=== PATIENT | male | born 1935 | race Caucasian/White ===

== ENCOUNTER 2020-10-03 10:39 | Inpatient (IN) ==
[2020-10-03 12:09] LABS: ABS Basophils 0.1 10^3/ul (0-0.2); ABS Lymphocytes 0.7 10^3/ul (1.0-4.8); ABS Monocytes 0.6 10^3/ul (0-0.8); ABS Neutrophils 12.9 10^3/ul (1.5-7.7); Hematocrit 40 % (42-52); Lymphocyte % 5.2 %; Mean Corpuscular HGB Conc 33 g/dL (31-36); Mean Corpuscular Hemoglobin 31 pg (27-31); Mean Corpuscular Volume 95 fL (80-94); Mean Platelet Volume 8.1 fL (7.4-10.4); Platelet Count 199 10^3/uL (150-450); Red Blood Count 4.15 10^6 /uL (4.18-5.48); Red Cell Distribution Width 14 % (10-15); White Blood Count 14.3 10^3/uL (3.5-10.8)
[2020-10-03 12:26] LABS: ALT 20 U/L (7-52); Albumin 4.3 g/dL (3.2-5.2); Albumin/Globulin Ratio 1.5 (1-3); Alkaline Phosphatase 49 U/L (34-104); BUN/Creatinine Ratio 24.7 (8-20); Blood Urea Nitrogen 23 mg/dL (6-24); C Reactive Protein < 1.00 mg/L (<8.01); CO2 Carbon Dioxide 27 mmol/L (22-32); Calcium 9.7 mg/dL (8.6-10.3); Chloride 94 mmol/L (101-111); EGFR Non-African American 76.9 (>60); Globulin 2.9 g/dL (2-4); Glucose 134 mg/dL (70-100); Sodium 129 mmol/L (135-145); Total Protein 7.2 g/dL (6.4-8.9)
[2020-10-03 13:03] LABS: Anion Gap 8 mmol/L (2-11)
[2020-10-03] MEDS ORDERED: Ondansetron 4 mg VIAL 2 MG/ML 2 ml VIAL IV ONE (13:03)
[2020-10-03] MEDS ORDERED: LORazepam 2 mg VIAL 1 ml IV PUSH ONE (13:40)
[2020-10-03] MEDS ORDERED: Lorazepam PYXIS KEY PRN ×2 (13:40→14:14)
[2020-10-03] MEDS ORDERED: NS 0.9% 1000 ml BAG 1,000 ML IV SCH (13:45)
[2020-10-03] MEDS ORDERED: Lactated Ringers 1000 ml BAG 1,000 ML IV SCH (15:00)
[2020-10-03 18:37] LABS: Urine Appearance Turbid; Urine Bilirubin Negative (Negative); Urine Blood 3+ (Negative); Urine Color Amber; Urine Glucose Negative (Negative); Urine Ketones Trace (Negative); Urine Nitrite Positive (Negative); Urine Protein 2+(100 mg/dL) (Negative); Urine Specific Gravity 1.014 (1.010-1.030); Urine Urobilinogen Negative (Negative)
[2020-10-03] MEDS ORDERED: Piperacillin/Tazobac ADVAN 3.375 GM in NS 0.9% 100 ml BAG 100 ML IV ONE (18:42)
[2020-10-03 18:44] LABS: Urine Bacteria 3+ (Absent); Urine Red Blood Cell 3+(>10/hpf) (Absent); Urine White Blood Cell 3+(>20/hpf) (Absent)
[2020-10-03] MEDS ORDERED: Zosyn per Pharmacy NOTE FOLLOW UP SCH (19:00)
[2020-10-03] MEDS: NS 0.9% 1000 ml BAG 1,000 ML IV SCH (22:19)
[2020-10-03] MEDS: Heparin 5000 UNITS/ML 1 mL VIAL SUBCUT SCH (22:23)
[2020-10-04] MEDS: ZOSYN 3.375 GM Q8H per EXTENDED INFUSION IV SCH ×3 (02:18→18:14)
[2020-10-04] MEDS: Heparin 5000 UNITS/ML 1 mL VIAL SUBCUT SCH ×3 (04:23→21:09)
[2020-10-04 05:58] LABS: ABS Lymphocytes 1.3 10^3/ul (1.0-4.8); ABS Monocytes 1.5 10^3/ul (0-0.8); ABS Neutrophils 15.2 10^3/ul (1.5-7.7); Hematocrit 26 % (42-52); Hemoglobin 8.5 g/dL (14.0-18.0); Lymphocyte % 7.5 %; Mean Corpuscular HGB Conc 34 g/dL (31-36); Mean Corpuscular Hemoglobin 32 pg (27-31); Mean Corpuscular Volume 95 fL (80-94); Mean Platelet Volume 7.7 fL (7.4-10.4); Platelet Count 150 10^3/uL (150-450); Red Blood Count 2.69 10^6 /uL (4.18-5.48); Red Cell Distribution Width 14 % (10-15)
[2020-10-04 05:59] LABS: BUN/Creatinine Ratio 25.4 (8-20); Calcium 8.3 mg/dL (8.6-10.3); EGFR Non-African American 50.4 (>60); Potassium 4.7 mmol/L (3.5-5.0)
[2020-10-04] MEDS ORDERED: Buffered Lidocaine 1% SYRIN 1 ml INTRADERM ONE (06:00)
[2020-10-04] MEDS ORDERED: Famotidine IV 10 MG/ML 2 ml VIAL (20 mg) IV ONE (06:00)
[2020-10-04] MEDS: Cholecalciferol (VIT D3) 1,000 unit TAB PO SCH ×2 (08:20→11:09)
[2020-10-04] MEDS: NS 0.9% 1000 ml BAG 1,000 ML IV SCH ×2 (09:24→18:15)
[2020-10-04] MEDS: LORazepam 2 mg VIAL 1 ml IV PUSH PRN (21:56)
[2020-10-05] MEDS: NS 0.9% 1000 ml BAG 1,000 ML IV SCH (01:23)
[2020-10-05] MEDS: ZOSYN 3.375 GM Q8H per EXTENDED INFUSION IV SCH ×3 (02:26→19:03)
[2020-10-05] MEDS: Heparin 5000 UNITS/ML 1 mL VIAL SUBCUT SCH (06:10)
[2020-10-05 06:24] LABS: Hematocrit 18 % (42-52); Mean Corpuscular HGB Conc 35 g/dL (31-36); Mean Corpuscular Hemoglobin 33 pg (27-31); Mean Corpuscular Volume 95 fL (80-94); Red Blood Count 1.86 10^6 /uL (4.18-5.48); Red Cell Distribution Width 14 % (10-15); White Blood Count 11.4 10^3/uL (3.5-10.8)
[2020-10-05 06:31] LABS: BUN/Creatinine Ratio 26.7 (8-20); Calcium 7.8 mg/dL (8.6-10.3); EGFR African American 84.5 (>60); EGFR Non-African American 69.9 (>60); Potassium 4.1 mmol/L (3.5-5.0)
[2020-10-05 06:40] LABS: ABS Lymphocytes 1.6 10^3/ul (1.0-4.8); ABS Monocytes 1.3 10^3/ul (0-0.8); ABS Neutrophils 8.4 10^3/ul (1.5-7.7); Eosinophil % 0.1 %; INR 1.12 (0.82-1.09); Lymphocyte % 14.3 %; Mean Platelet Volume 7.4 fL (7.4-10.4); Platelet Count 96 10^3/uL (150-450)
[2020-10-05 06:44] LABS: Hemoglobin 6.1 g/dL (14.0-18.0)
[2020-10-05] MEDS: Cholecalciferol (VIT D3) 1,000 unit TAB PO SCH (08:57)
[2020-10-05] MEDS ORDERED: [UNRECOGNIZED DRUG - OTHER] IV ONE (12:30)
[2020-10-05] MEDS ORDERED: ANTIHEMOPHILIC FACTOR IV ONE (12:30)
[2020-10-05] MEDS ORDERED: Lidocaine 1% w EPI 1:200,000 SDV 30 ML VIAL ONE (13:21)
[2020-10-05] MEDS ORDERED: Bacitracin INJECTION 50,000 UNITS ONE (13:22)
[2020-10-05] MEDS ORDERED: Lidocaine 2% PF 5 ML VIAL ONE (13:56)
[2020-10-05] MEDS ORDERED: Propofol 1,000 MG/100 ML BTL ONE (13:56)
[2020-10-05] MEDS ORDERED: Rocuronium 50 mg VIAL 10 mg/ml 5 ml VIAL (50 mg) ONE (13:59)
[2020-10-05] MEDS ORDERED: Sodium Chloride 0.9% 10 ML ONE (15:01)
[2020-10-05] MEDS ORDERED: Desflurane 240 ML INH ONE (16:57)
[2020-10-05] MEDS ORDERED: Dexamethasone IV 4 MG/ML VIAL 1 ml VIAL ONE (17:05)
[2020-10-05 17:07] LABS: ABS Lymphocytes 1.9 10^3/ul (1.0-4.8); ABS Monocytes 1.6 10^3/ul (0-0.8); ABS Neutrophils 12.3 10^3/ul (1.5-7.7); Eosinophil % 0.1 %; Hematocrit 24 % (42-52); Lymphocyte % 12.2 %; Mean Corpuscular HGB Conc 34 g/dL (31-36); Mean Corpuscular Hemoglobin 31 pg (27-31); Mean Corpuscular Volume 91 fL (80-94); Mean Platelet Volume 7.7 fL (7.4-10.4); Platelet Count 86 10^3/uL (150-450); Red Blood Count 2.61 10^6 /uL (4.18-5.48); Red Cell Distribution Width 15 % (10-15); White Blood Count 15.9 10^3/uL (3.5-10.8)
[2020-10-05] MEDS ORDERED: HYDROmorphone 1 MG/1 ML SYRINGE IV PRN (17:13)
[2020-10-05] MEDS ORDERED: Naloxone 0.4 mg VIAL 0.4 mg/ml 1 ml VIAL IV PRN (17:13)
[2020-10-05] MEDS ORDERED: Ondansetron 4 mg VIAL 2 MG/ML 2 ml VIAL IV PRN (17:13)
[2020-10-05 18:19] LABS: Hematocrit 24 % (42-52); Hemoglobin 8.1 g/dL (14.0-18.0)
[2020-10-06 00:34] LABS: ABS Lymphocytes 0.4 10^3/ul (1.0-4.8); ABS Monocytes 0.7 10^3/ul (0-0.8); ABS Neutrophils 9.8 10^3/ul (1.5-7.7); Hematocrit 22 % (42-52); Hemoglobin 7.7 g/dL (14.0-18.0); Lymphocyte % 3.7 %; Mean Corpuscular HGB Conc 35 g/dL (31-36); Mean Corpuscular Hemoglobin 32 pg (27-31); Mean Corpuscular Volume 91 fL (80-94); Mean Platelet Volume 7.7 fL (7.4-10.4); Platelet Count 91 10^3/uL (150-450); Red Blood Count 2.45 10^6 /uL (4.18-5.48); Red Cell Distribution Width 15 % (10-15); White Blood Count 10.9 10^3/uL (3.5-10.8)
[2020-10-06] MEDS ORDERED: ANTIHEMOPHILIC FACTOR IV ONE ×2 (01:00→13:00)
[2020-10-06] MEDS ORDERED: [UNRECOGNIZED DRUG - OTHER] IV ONE ×2 (01:00→13:00)
[2020-10-06] MEDS: LORazepam 2 mg VIAL 1 ml IV PUSH PRN ×2 (01:55→14:18)
[2020-10-06] MEDS: ZOSYN 3.375 GM Q8H per EXTENDED INFUSION IV SCH ×3 (02:41→18:41)
[2020-10-06 06:39] LABS: Urine Appearance Cloudy; Urine Bilirubin Negative (Negative); Urine Blood 2+ (Negative); Urine Color Yellow; Urine Glucose Negative (Negative); Urine Ketones Negative (Negative); Urine Nitrite Negative (Negative); Urine Protein Negative (Negative); Urine Urobilinogen Negative (Negative)
[2020-10-06 06:44] LABS: Urine Bacteria 1+ (Absent); Urine Red Blood Cell 2+(6-10/hpf) (Absent); Urine Squamous Epithelial Cell Present (Absent); Urine Uric Acid Crystals Present (Absent); Urine White Blood Cell 2+(11-20/hpf) (Absent)
[2020-10-06 09:04] LABS: Hematocrit 26 % (42-52); Hemoglobin 8.9 g/dL (14.0-18.0)
[2020-10-06] MEDS ORDERED: ANTIHEMOPHILIC FACTOR IV SCH (10:00)
[2020-10-06] MEDS ORDERED: [UNRECOGNIZED DRUG - OTHER] IV SCH (10:00)
[2020-10-06] MEDS: Cholecalciferol (VIT D3) 1,000 unit TAB PO SCH (10:12)
[2020-10-06 12:28] LABS: Hematocrit 24 % (42-52); Hemoglobin 8.2 g/dL (14.0-18.0)
[2020-10-06] MEDS: NS 0.9% 1000 ml BAG 1,000 ML IV SCH (13:01)
[2020-10-06 14:48] LABS: Calcium 8.1 mg/dL (8.6-10.3); Magnesium 1.8 mg/dL (1.9-2.7); Potassium 3.8 mmol/L (3.5-5.0)
[2020-10-06 14:54] LABS: BUN/Creatinine Ratio 25.3 (8-20); EGFR African American 112.3 (>60); EGFR Non-African American 92.8 (>60)
[2020-10-06] MEDS ORDERED: Magnesium Sulfate 2 gm BAG 2 GM/50 ML BAG IVPB ONE (16:12)
[2020-10-06] MEDS: Polyethylene Glycol 3350 17 GM PACKET PO SCH (16:38)
[2020-10-06 20:41] LABS: Hematocrit 24 % (42-52)
[2020-10-06 23:24] LABS: Hematocrit 21 % (42-52); Hemoglobin 7.3 g/dL (14.0-18.0)
[2020-10-07] MEDS ORDERED: [UNRECOGNIZED DRUG - OTHER] IV ONE ×2 (01:00→13:00)
[2020-10-07] MEDS ORDERED: [UNRECOGNIZED DRUG - OTHER] IV ONE (01:00)
[2020-10-07] MEDS ORDERED: ANTIHEMOPHILIC FACTOR IV ONE ×3 (01:00→13:00)
[2020-10-07] MEDS: ZOSYN 3.375 GM Q8H per EXTENDED INFUSION IV SCH (04:21)
[2020-10-07 05:48] LABS: Hematocrit 25 % (42-52); Hemoglobin 8.8 g/dL (14.0-18.0)
[2020-10-07 06:12] LABS: Calcium 7.9 mg/dL (8.6-10.3); EGFR African American 124.9 (>60); EGFR Non-African American 103.3 (>60); Potassium 3.6 mmol/L (3.5-5.0)
[2020-10-07] MEDS ORDERED: Potassium Chlor 20 meq TAB.ER PO ONE (06:52)
[2020-10-07 08:37] LABS: Magnesium 1.9 mg/dL (1.9-2.7)
[2020-10-07] MEDS ORDERED: Magnesium Sulfate 2 gm BAG 2 GM/50 ML BAG IVPB ONE (08:38)
[2020-10-07 09:05] LABS: Hematocrit 27 % (42-52); Hemoglobin 9.1 g/dL (14.0-18.0)
[2020-10-07] MEDS: Polyethylene Glycol 3350 17 GM PACKET PO SCH (09:28)
[2020-10-07] MEDS: Cholecalciferol (VIT D3) 1,000 unit TAB PO SCH (09:28)
[2020-10-07] MEDS ORDERED: Piperacillin/Tazobac ADVAN 3.375 GM in NS 0.9% 100 ml BAG 100 ML IV SCH (12:30)
[2020-10-07] MEDS: NS 0.9% 1000 ml BAG 1,000 ML IV SCH (12:45)
[2020-10-07 14:29] LABS: Hematocrit 26 % (42-52); Hemoglobin 9.1 g/dL (14.0-18.0)
[2020-10-07 20:51] LABS: Hematocrit 25 % (42-52); Hemoglobin 8.8 g/dL (14.0-18.0)
[2020-10-08] MEDS ORDERED: [UNRECOGNIZED DRUG - OTHER] IV ONE ×2 (01:00→13:00)
[2020-10-08] MEDS ORDERED: [UNRECOGNIZED DRUG - OTHER] IV ONE ×2 (01:00→13:00)
[2020-10-08] MEDS ORDERED: ANTIHEMOPHILIC FACTOR IV ONE ×4 (01:00→13:00)
[2020-10-08 01:59] LABS: Hematocrit 23 % (42-52); Hemoglobin 8.2 g/dL (14.0-18.0)
[2020-10-08 07:03] LABS: Hematocrit 25 % (42-52); Hemoglobin 8.5 g/dL (14.0-18.0)
[2020-10-08 07:32] LABS: BUN/Creatinine Ratio 24.2 (8-20); EGFR African American 148.5 (>60); EGFR Non-African American 122.7 (>60); Magnesium 1.9 mg/dL (1.9-2.7); Potassium 3.6 mmol/L (3.5-5.0)
[2020-10-08] MEDS: Cholecalciferol (VIT D3) 1,000 unit TAB PO SCH (08:54)
[2020-10-08] MEDS: Polyethylene Glycol 3350 17 GM PACKET PO SCH (08:55)
[2020-10-08] MEDS: NS 0.9% 1000 ml BAG 1,000 ML IV SCH (12:39)
[2020-10-09] MEDS ORDERED: [UNRECOGNIZED DRUG - OTHER] IV ONE ×2 (01:00→13:00)
[2020-10-09] MEDS ORDERED: [UNRECOGNIZED DRUG - OTHER] IV ONE ×2 (01:00→13:00)
[2020-10-09] MEDS ORDERED: ANTIHEMOPHILIC FACTOR IV ONE ×4 (01:00→13:00)
[2020-10-09 06:32] LABS: Hematocrit 24 % (42-52); Hemoglobin 8.5 g/dL (14.0-18.0)
[2020-10-09] MEDS: Polyethylene Glycol 3350 17 GM PACKET PO SCH (09:14)
[2020-10-09] MEDS: Cholecalciferol (VIT D3) 1,000 unit TAB PO SCH (09:14)
[2020-10-10 03:11] VITALS: BP 150/65
[2020-10-10 05:48] LABS: Hematocrit 28 % (42-52); Hemoglobin 9.5 g/dL (14.0-18.0)
== END 2020-10-10 07:45 | DRG 480 ==
LOC: ED 10:39 → SSU 14:11
PROVIDERS: ADMIT Internal Medicine; ATTEND Internal Medicine

== ENCOUNTER 2020-10-08 08:19 | Inpatient (IN) ==
[2020-10-10] MEDS ORDERED: Senna TAB 8.6 mg TAB PO PRN (08:41)
[2020-10-10] MEDS ORDERED: Al Hydrox/Mg Hydrox/Simet LIQ 30 ML UDC PO PRN (08:41)
[2020-10-10] MEDS ORDERED: Magnesium Hydroxide LIQ 30 ML UDC PO PRN (08:41)
[2020-10-10] MEDS ORDERED: Polyethylene Glycol 3350 17 GM PACKET PO SCH (09:00)
[2020-10-10] MEDS: Cholecalciferol (VIT D3) 1,000 unit TAB PO SCH (10:40)
[2020-10-10] MEDS ORDERED: ANTIHEMOPHILIC FACTOR IV ONE (13:00)
[2020-10-10] MEDS ORDERED: [UNRECOGNIZED DRUG - OTHER] IV ONE (13:00)
[2020-10-11 06:30] LABS: ABS Eosinophils 0.2 10^3/ul (0-0.6); ABS Lymphocytes 1.4 10^3/ul (1.0-4.8); ABS Neutrophils 5.6 10^3/ul (1.5-7.7); Eosinophil % 2.9 %; Hematocrit 27 % (42-52); Hemoglobin 9.2 g/dL (14.0-18.0); Lymphocyte % 16.4 %; Mean Corpuscular HGB Conc 35 g/dL (31-36); Mean Corpuscular Hemoglobin 32 pg (27-31); Mean Corpuscular Volume 93 fL (80-94); Mean Platelet Volume 6.8 fL (7.4-10.4); Platelet Count 239 10^3/uL (150-450); Red Blood Count 2.86 10^6 /uL (4.18-5.48); Red Cell Distribution Width 15 % (10-15); White Blood Count 8.3 10^3/uL (3.5-10.8)
[2020-10-11 06:50] LABS: Albumin 2.7 g/dL (3.2-5.2); Albumin/Globulin Ratio 1.2 (1-3); BUN/Creatinine Ratio 22.4 (8-20); Calcium 8.1 mg/dL (8.6-10.3); EGFR African American 135.8 (>60); EGFR Non-African American 112.2 (>60); Globulin 2.2 g/dL (2-4); Potassium 3.7 mmol/L (3.5-5.0); Total Bilirubin 1.4 mg/dL (0.2-1.0); Total Protein 4.9 g/dL (6.4-8.9)
[2020-10-11] MEDS: Cholecalciferol (VIT D3) 1,000 unit TAB PO SCH (08:29)
[2020-10-11] MEDS ORDERED: ANTIHEMOPHILIC FACTOR IV ONE (14:00)
[2020-10-11] MEDS ORDERED: [UNRECOGNIZED DRUG - OTHER] IV ONE (14:00)
[2020-10-12 06:45] LABS: Hematocrit 28 % (42-52); Hemoglobin 9.4 g/dL (14.0-18.0)
[2020-10-12] MEDS ORDERED: NS 0.9% 250 ml 250 ML IV ONE (09:08)
[2020-10-12] MEDS: Cholecalciferol (VIT D3) 1,000 unit TAB PO SCH (09:24)
[2020-10-12] MEDS ORDERED: ANTIHEMOPHILIC FACTOR IV ONE (14:30)
[2020-10-12] MEDS ORDERED: [UNRECOGNIZED DRUG - OTHER] IV ONE (14:30)
[2020-10-13 06:54] LABS: ABS Basophils 0.1 10^3/ul (0-0.2); ABS Eosinophils 0.2 10^3/ul (0-0.6); ABS Lymphocytes 1.3 10^3/ul (1.0-4.8); ABS Monocytes 0.9 10^3/ul (0-0.8); ABS Neutrophils 6.1 10^3/ul (1.5-7.7); Eosinophil % 2.7 %; Hematocrit 28 % (42-52); Hemoglobin 9.6 g/dL (14.0-18.0); Lymphocyte % 15.1 %; Mean Corpuscular HGB Conc 34 g/dL (31-36); Mean Corpuscular Hemoglobin 32 pg (27-31); Mean Corpuscular Volume 94 fL (80-94); Mean Platelet Volume 6.6 fL (7.4-10.4); Platelet Count 287 10^3/uL (150-450); Red Blood Count 3.01 10^6 /uL (4.18-5.48); Red Cell Distribution Width 16 % (10-15); White Blood Count 8.6 10^3/uL (3.5-10.8)
[2020-10-13 07:17] LABS: Albumin 2.8 g/dL (3.2-5.2); Albumin/Globulin Ratio 1.2 (1-3); BUN/Creatinine Ratio 22.6 (8-20); Calcium 8.3 mg/dL (8.6-10.3); EGFR African American 148.5 (>60); EGFR Non-African American 122.7 (>60); Globulin 2.4 g/dL (2-4); Total Bilirubin 1.3 mg/dL (0.2-1.0); Total Protein 5.2 g/dL (6.4-8.9)
[2020-10-13] MEDS: Cholecalciferol (VIT D3) 1,000 unit TAB PO SCH (08:29)
[2020-10-13] MEDS ORDERED: [UNRECOGNIZED DRUG - OTHER] IV ONE (13:00)
[2020-10-13] MEDS ORDERED: [UNRECOGNIZED DRUG - OTHER] IV ONE (13:00)
[2020-10-13] MEDS ORDERED: ANTIHEMOPHILIC FACTOR IV ONE ×2 (13:00)
[2020-10-14 06:50] LABS: Hematocrit 29 % (42-52); Hemoglobin 9.6 g/dL (14.0-18.0)
[2020-10-14] MEDS: Cholecalciferol (VIT D3) 1,000 unit TAB PO SCH (10:48)
[2020-10-14] MEDS ORDERED: [UNRECOGNIZED DRUG - OTHER] IV ONE ×2 (14:00)
[2020-10-14] MEDS ORDERED: ANTIHEMOPHILIC FACTOR IV ONE ×3 (14:00)
[2020-10-14] MEDS ORDERED: [UNRECOGNIZED DRUG - OTHER] IV ONE (14:00)
[2020-10-14] MEDS ORDERED: Hemorrhoidal OINT 1 TUBE PR PRN (20:13)
[2020-10-15 06:19] LABS: Hematocrit 29 % (42-52); Hemoglobin 9.8 g/dL (14.0-18.0)
[2020-10-15] MEDS: Cholecalciferol (VIT D3) 1,000 unit TAB PO SCH (09:44)
[2020-10-15 20:06] LABS: Urine Appearance Cloudy; Urine Bilirubin Negative (Negative); Urine Blood 2+ (Negative); Urine Color Amber; Urine Glucose Negative (Negative); Urine Ketones Negative (Negative); Urine Nitrite Positive (Negative); Urine Protein Negative (Negative); Urine Specific Gravity 1.019 (1.010-1.030); Urine Urobilinogen Negative (Negative)
[2020-10-15 20:08] LABS: Urine Bacteria 1+ (Absent); Urine Red Blood Cell 3+(>10/hpf) (Absent); Urine Squamous Epithelial Cell Present (Absent); Urine White Blood Cell 3+(>20/hpf) (Absent)
[2020-10-16 06:17] LABS: Hematocrit 30 % (42-52)
[2020-10-16] MEDS: Cholecalciferol (VIT D3) 1,000 unit TAB PO SCH (09:08)
[2020-10-17 06:23] LABS: Hematocrit 29 % (42-52); Hemoglobin 9.9 g/dL (14.0-18.0)
[2020-10-17] MEDS: Cholecalciferol (VIT D3) 1,000 unit TAB PO SCH (10:15)
[2020-10-18] MEDS: Cholecalciferol (VIT D3) 1,000 unit TAB PO SCH (09:20)
[2020-10-19] MEDS: Cholecalciferol (VIT D3) 1,000 unit TAB PO SCH (08:54)
[2020-10-20 05:22] LABS: ABS Basophils 0.1 10^3/ul (0-0.2); ABS Eosinophils 0.1 10^3/ul (0-0.6); ABS Lymphocytes 1.4 10^3/ul (1.0-4.8); ABS Monocytes 0.7 10^3/ul (0-0.8); ABS Neutrophils 4.9 10^3/ul (1.5-7.7); Hematocrit 31 % (42-52); Hemoglobin 10.3 g/dL (14.0-18.0); Lymphocyte % 19.1 %; Mean Corpuscular HGB Conc 34 g/dL (31-36); Mean Corpuscular Hemoglobin 32 pg (27-31); Mean Corpuscular Volume 96 fL (80-94); Mean Platelet Volume 6.1 fL (7.4-10.4); Platelet Count 340 10^3/uL (150-450); Red Blood Count 3.18 10^6 /uL (4.18-5.48); Red Cell Distribution Width 17 % (10-15); White Blood Count 7.2 10^3/uL (3.5-10.8)
[2020-10-20 05:50] LABS: Albumin 2.9 g/dL (3.2-5.2); BUN/Creatinine Ratio 22.9 (8-20); Calcium 8.6 mg/dL (8.6-10.3); EGFR African American 129.1 (>60); EGFR Non-African American 106.7 (>60); Globulin 2.9 g/dL (2-4); Potassium 4.3 mmol/L (3.5-5.0); Total Protein 5.8 g/dL (6.4-8.9)
[2020-10-20] MEDS: Cholecalciferol (VIT D3) 1,000 unit TAB PO SCH (08:47)
[2020-10-20] MEDS: Cefepime 1 GM in Dextrose 1 GM/50 ML BAG IV SCH (19:01)
[2020-10-21] MEDS: Cefepime 1 GM in Dextrose 1 GM/50 ML BAG IV SCH ×2 (06:28→20:05)
[2020-10-21] MEDS: Cholecalciferol (VIT D3) 1,000 unit TAB PO SCH (07:35)
[2020-10-22 06:01] LABS: Hematocrit 25 % (42-52); Hemoglobin 8.7 g/dL (14.0-18.0)
[2020-10-22] MEDS: Cefepime 1 GM in Dextrose 1 GM/50 ML BAG IV SCH ×2 (06:18→18:43)
[2020-10-22] MEDS: Cholecalciferol (VIT D3) 1,000 unit TAB PO SCH (07:20)
[2020-10-23] MEDS: Cefepime 1 GM in Dextrose 1 GM/50 ML BAG IV SCH ×2 (05:28→18:35)
[2020-10-23] MEDS: Cholecalciferol (VIT D3) 1,000 unit TAB PO SCH (07:15)
[2020-10-24] MEDS: Cefepime 1 GM in Dextrose 1 GM/50 ML BAG IV SCH ×2 (05:42→19:21)
[2020-10-24 06:11] LABS: Hematocrit 26 % (42-52); Hemoglobin 8.7 g/dL (14.0-18.0)
[2020-10-24] MEDS: Cholecalciferol (VIT D3) 1,000 unit TAB PO SCH (07:41)
[2020-10-25] MEDS: Cefepime 1 GM in Dextrose 1 GM/50 ML BAG IV SCH ×2 (06:09→18:51)
[2020-10-25] MEDS: Cholecalciferol (VIT D3) 1,000 unit TAB PO SCH (08:27)
[2020-10-26] MEDS: Cefepime 1 GM in Dextrose 1 GM/50 ML BAG IV SCH ×2 (06:35→19:29)
[2020-10-26] MEDS: Cholecalciferol (VIT D3) 1,000 unit TAB PO SCH (10:19)
[2020-10-27] MEDS: Cefepime 1 GM in Dextrose 1 GM/50 ML BAG IV SCH ×2 (06:24→18:13)
[2020-10-27 07:18] LABS: Hematocrit 28 % (42-52); Hemoglobin 9.2 g/dL (14.0-18.0); Mean Corpuscular HGB Conc 33 g/dL (31-36); Mean Corpuscular Hemoglobin 33 pg (27-31); Mean Corpuscular Volume 99 fL (80-94); Mean Platelet Volume 6.2 fL (7.4-10.4); Platelet Count 274 10^3/uL (150-450); Red Blood Count 2.82 10^6 /uL (4.18-5.48); Red Cell Distribution Width 18 % (10-15); White Blood Count 6.9 10^3/uL (3.5-10.8)
[2020-10-27] MEDS: Cholecalciferol (VIT D3) 1,000 unit TAB PO SCH (07:22)
[2020-10-27 07:32] LABS: Albumin 3.1 g/dL (3.2-5.2); Albumin/Globulin Ratio 1.1 (1-3); BUN/Creatinine Ratio 16.2 (8-20); Calcium 8.6 mg/dL (8.6-10.3); EGFR African American 133.5 (>60); EGFR Non-African American 110.3 (>60); Globulin 2.8 g/dL (2-4); Potassium 4.1 mmol/L (3.5-5.0); Total Bilirubin 0.8 mg/dL (0.2-1.0); Total Protein 5.9 g/dL (6.4-8.9)
[2020-10-27 08:29] LABS: ABS Basophils 0.1 10^3/ul (0-0.2); ABS Eosinophils 0.1 10^3/ul (0-0.6); ABS Lymphocytes 1.4 10^3/ul (1.0-4.8); ABS Monocytes 0.6 10^3/ul (0-0.8); ABS Neutrophils 4.7 10^3/ul (1.5-7.7); Eosinophil % 1.8 %; Nucleated Red Blood Cells % 0.1
[2020-10-28] MEDS: Cholecalciferol (VIT D3) 1,000 unit TAB PO SCH (08:20)
[2020-10-29] MEDS: Cholecalciferol (VIT D3) 1,000 unit TAB PO SCH (07:32)
[2020-10-29 19:48] LABS: Urine Appearance Cloudy; Urine Bilirubin Negative (Negative); Urine Blood 3+ (Negative); Urine Color Yellow; Urine Glucose Negative (Negative); Urine Ketones Negative (Negative); Urine Nitrite Negative (Negative); Urine Protein 2+(100 mg/dL) (Negative); Urine Specific Gravity 1.018 (1.010-1.030); Urine Urobilinogen Negative (Negative)
[2020-10-29 19:57] LABS: Urine Bacteria Absent (Absent); Urine Red Blood Cell 3+(>10/hpf) (Absent); Urine White Blood Cell 3+(>20/hpf) (Absent)
[2020-10-30] MEDS: Cholecalciferol (VIT D3) 1,000 unit TAB PO SCH (09:12)
[2020-10-31 05:13] VITALS: BP 125/62
[2020-10-31] MEDS: Cholecalciferol (VIT D3) 1,000 unit TAB PO SCH (09:15)
== END 2020-10-31 13:30 | disposition home health service (06) | DRG 559 ==
LOC: PMRU 10-10 07:46
PROVIDERS: ADMIT Physical Medicine & Rehabilitation; ATTEND Physical Medicine & Rehabilitation

== ENCOUNTER 2021-03-19 18:55 | Inpatient (IN) ==
[2021-03-19] MEDS ORDERED: Lactated Ringers 1000 ml BAG IV.FLUID IV ONE (19:16)
[2021-03-19 20:03] LABS: ABS Lymphocytes 0.5 10^3/ul (1.0-4.8); ABS Monocytes 0.3 10^3/ul (0-0.8); Eosinophil % 0.1 %; Hematocrit 43 % (42-52); Hemoglobin 14.1 g/dL (14.0-18.0); Lymphocyte % 3.6 %; Mean Corpuscular HGB Conc 33 g/dL (31-36); Mean Corpuscular Hemoglobin 29 pg (27-31); Mean Corpuscular Volume 88 fL (80-94); Mean Platelet Volume 7.1 fL (7.4-10.4); Platelet Count 192 10^3/uL (150-450); Red Blood Count 4.81 10^6 /uL (4.18-5.48); Red Cell Distribution Width 18 % (10-15); White Blood Count 13.8 10^3/uL (3.5-10.8)
[2021-03-19 20:14] LABS: Activated Partial Thrombo Time 39.4 seconds (26.0-38.0); INR 1.06 (0.86-1.15)
[2021-03-19 20:19] LABS: Albumin 4.1 g/dL (3.2-5.2); Albumin/Globulin Ratio 1.2 (1-3); C Reactive Protein 9.19 mg/L (<8.01); Calcium 9.6 mg/dL (8.6-10.3); EGFR African American 96.4 (>60); EGFR Non-African American 79.6 (>60); Globulin 3.4 g/dL (2-4); Total Bilirubin 0.7 mg/dL (0.2-1.0); Total Protein 7.5 g/dL (6.4-8.9)
[2021-03-19 20:20] LABS: Troponin I 0.01 ng/mL (<0.03)
[2021-03-19 20:21] LABS: Potassium 4.9 mmol/L (3.5-5.0)
[2021-03-19 21:01] LABS: Urine Appearance Cloudy; Urine Bilirubin Negative (Negative); Urine Blood 3+ (Negative); Urine Color Straw; Urine Glucose Negative (Negative); Urine Ketones Negative (Negative); Urine Nitrite Positive (Negative); Urine Protein 1+(30 mg/dL) (Negative); Urine Specific Gravity 1.009 (1.002-1.030); Urine Urobilinogen Negative (Negative)
[2021-03-19] MEDS ORDERED: Cefepime 1 GM in Dextrose 1 GM/50 ML BAG IV ONE (21:17)
[2021-03-20] MEDS ORDERED: Cefepime 2 GM IV - ED ONCE IV ONE (07:15)
[2021-03-20 07:26] LABS: Calcium 8.7 mg/dL (8.6-10.3); Potassium 4.5 mmol/L (3.5-5.0)
[2021-03-20] MEDS ORDERED: NS 0.9% 1000 ml BAG 1,000 ML IV SCH (07:30)
[2021-03-20 07:32] LABS: EGFR African American 102.9 (>60); EGFR Non-African American 85.1 (>60)
[2021-03-20 08:13] LABS: Hematocrit 37 % (42-52); Hemoglobin 12.6 g/dL (14.0-18.0); Mean Corpuscular HGB Conc 34 g/dL (31-36); Mean Corpuscular Hemoglobin 30 pg (27-31); Mean Corpuscular Volume 88 fL (80-94); Mean Platelet Volume 6.7 fL (7.4-10.4); Platelet Count 156 10^3/uL (150-450); Red Blood Count 4.24 10^6 /uL (4.18-5.48); Red Cell Distribution Width 18 % (10-15); White Blood Count 15.5 10^3/uL (3.5-10.8)
[2021-03-20] MEDS ORDERED: Iohexol 300 (CONTRAST) 10 ML SDV IV ONE (11:27)
[2021-03-20] MEDS ORDERED: NS 0.9% 1000 ml BAG 1,000 ML IV ONE (16:21)
[2021-03-20] MEDS: Cholecalciferol (VIT D3) 1,000 unit TAB PO SCH (16:47)
[2021-03-20] MEDS: Cefepime 2 GM in Dextrose 2 GM/50 ML BAG IV SCH (21:18)
[2021-03-21 09:30] LABS: ABS Eosinophils 0.1 10^3/ul (0-0.6); ABS Lymphocytes 0.9 10^3/ul (1.0-4.8); ABS Monocytes 0.9 10^3/ul (0-0.8); ABS Neutrophils 8.9 10^3/ul (1.5-7.7); Eosinophil % 0.6 %; Hematocrit 38 % (42-52); Hemoglobin 12.7 g/dL (14.0-18.0); Lymphocyte % 8.7 %; Mean Corpuscular HGB Conc 33 g/dL (31-36); Mean Corpuscular Hemoglobin 30 pg (27-31); Mean Corpuscular Volume 89 fL (80-94); Mean Platelet Volume 6.9 fL (7.4-10.4); Platelet Count 146 10^3/uL (150-450); Red Blood Count 4.26 10^6 /uL (4.18-5.48); Red Cell Distribution Width 18 % (10-15); White Blood Count 10.9 10^3/uL (3.5-10.8)
[2021-03-21 09:49] LABS: Calcium 8.4 mg/dL (8.6-10.3); EGFR African American 105.8 (>60); EGFR Non-African American 87.4 (>60); Potassium 3.7 mmol/L (3.5-5.0)
[2021-03-21] MEDS: Cefepime 2 GM in Dextrose 2 GM/50 ML BAG IV SCH ×2 (11:27→22:48)
[2021-03-21] MEDS: Cholecalciferol (VIT D3) 1,000 unit TAB PO SCH (11:27)
[2021-03-21] MEDS ORDERED: NS 0.9% 1000 ml BAG 1,000 ML IV SCH (15:30)
[2021-03-22 05:33] LABS: ABS Eosinophils 0.1 10^3/ul (0-0.6); ABS Lymphocytes 1.2 10^3/ul (1.0-4.8); ABS Monocytes 1.1 10^3/ul (0-0.8); ABS Neutrophils 6.1 10^3/ul (1.5-7.7); Hematocrit 36 % (42-52); Hemoglobin 12.3 g/dL (14.0-18.0); Lymphocyte % 14.1 %; Mean Corpuscular HGB Conc 34 g/dL (31-36); Mean Corpuscular Hemoglobin 30 pg (27-31); Mean Corpuscular Volume 89 fL (80-94); Mean Platelet Volume 7.1 fL (7.4-10.4); Platelet Count 146 10^3/uL (150-450); Red Blood Count 4.09 10^6 /uL (4.18-5.48); Red Cell Distribution Width 17 % (10-15); White Blood Count 8.5 10^3/uL (3.5-10.8)
[2021-03-22 06:03] LABS: Calcium 8.5 mg/dL (8.6-10.3); EGFR African American 120.8 (>60); EGFR Non-African American 99.8 (>60); Potassium 3.9 mmol/L (3.5-5.0)
[2021-03-22] MEDS: Cholecalciferol (VIT D3) 1,000 unit TAB PO SCH (08:25)
[2021-03-22] MEDS: Cefepime 2 GM in Dextrose 2 GM/50 ML BAG IV SCH ×2 (08:57→20:28)
[2021-03-22] MEDS ORDERED: NS 0.9% 1000 ml BAG 1,000 ML IV ONE (20:58)
[2021-03-23] MEDS: Cefepime 2 GM in Dextrose 2 GM/50 ML BAG IV SCH (09:01)
[2021-03-23] MEDS: Cholecalciferol (VIT D3) 1,000 unit TAB PO SCH (09:01)
[2021-03-23 12:09] VITALS: BP 123/55
[2021-03-23 14:25] LABS: ABS Eosinophils 0.1 10^3/ul (0-0.6); ABS Lymphocytes 1.2 10^3/ul (1.0-4.8); ABS Neutrophils 6.1 10^3/ul (1.5-7.7); Eosinophil % 1.2 %; Hematocrit 37 % (42-52); Hemoglobin 12.7 g/dL (14.0-18.0); Mean Corpuscular HGB Conc 34 g/dL (31-36); Mean Corpuscular Hemoglobin 30 pg (27-31); Mean Corpuscular Volume 88 fL (80-94); Mean Platelet Volume 7.4 fL (7.4-10.4); Platelet Count 184 10^3/uL (150-450); Red Blood Count 4.23 10^6 /uL (4.18-5.48); Red Cell Distribution Width 17 % (10-15); White Blood Count 8.5 10^3/uL (3.5-10.8)
[2021-03-23 14:54] LABS: Urine Appearance Cloudy; Urine Bilirubin Negative (Negative); Urine Blood 2+ (Negative); Urine Color Yellow; Urine Glucose Negative (Negative); Urine Ketones Trace (Negative); Urine Nitrite Negative (Negative); Urine Protein Negative (Negative); Urine Specific Gravity 1.017 (1.002-1.030); Urine Urobilinogen Negative (Negative)
[2021-03-23 15:17] LABS: Calcium 8.6 mg/dL (8.6-10.3); EGFR African American 126.7 (>60); EGFR Non-African American 104.7 (>60); Potassium 4.6 mmol/L (3.5-5.0)
[2021-03-23 15:36] LABS: Urine Bacteria Absent (Absent); Urine Red Blood Cell 3+(>10/hpf) (Absent); Urine White Blood Cell 3+(>20/hpf) (Absent)
== END 2021-03-23 17:20 | disposition hospice, home (50) | DRG 871 ==
LOC: ED 18:55 → SUATTDRO 22:13 → EDHOLD 22:13 → MEDTELE 03-20 12:40 → SSU 03-21 17:49 → MED 03-22 15:56
PROVIDERS: ADMIT Student in an Organized Health Care Education/Training Program; ATTEND Internal Medicine